=== PATIENT | female | born 1985 | race Caucasian/White ===

== ENCOUNTER 2018-03-26 09:27 | Emergency (ER) | payer OTHER ==
[~2018-03-26] VITALS: Ht 172.7 cm; Wt 72.6 kg
[2018-03-26] MEDS ORDERED: VIBRAMYCIN 100100 MG PO (09:36)
[2018-03-26 09:40] VITALS: BP 111/79
== END 2018-03-26 09:40 | disposition home or self-care (01) ==
LOC: ER 09:27
DX: L02.416 Cutaneous abscess of left lower limb (principal); L02.811 Cutaneous abscess of head [any part, except face]; L73.9 Follicular disorder, unspecified; Z48.01 Encounter for change or removal of surgical wound dressing; F17.210 Nicotine dependence, cigarettes, uncomplicated